=== PATIENT | male | born 1965 | race Hispanic/Latino ===

== ENCOUNTER 2019-09-11 05:31 | Inpatient (IN) | payer OTHER ==
[2019-09-11] MEDS ORDERED: Fentanyl 100 MCG/2 ML VIAL ONE (06:28)
[2019-09-11] MEDS ORDERED: Lidocaine 1% (PF) 30 ML VIAL ONE (07:10)
--- NOTE | 2019-09-11 07:35 | CT ---
CTA OF THE CHEST WITH CONTRAST: Date: 09/11/2019 HISTORY: COVID pneumonia with worsening shortness of breath. Previous tension pneumothorax for which a pigtail catheter was placed and eventually exchanged for a large chest tube. TECHNIQUE: Multiple contiguous axial images were obtained in a CTA of the chest with contrast per pulmonary embo lism protocol. 3D oblique MIP reformats and direct coronal reformats were performed. FINDINGS: The pulmonary arteries are well opacified without filling defects to suggest pulmonary embolism. The heart is normal in size without focal cardiac abnormality. No hilar or mediastinal lymphadenopathy se en. There is a left-sided chest tube. There is a moderate left pneumothorax with atelectasis of inferior and posterior aspect of both lower lobes. Multifocal peripheral opacities are seen in the lungs. This is most prominent in the right upper lobe. There is air in the mediastinum and left chest wall extending up to the left neck. Visualized subdiaphragmatic structures are unremarkable. Degenerative changes are seen in the spine. IMPRESSION: 1. No evidence of pulmonary thromboembolism. 2. Moderate left pneumothorax status post chest tube placement. 3. Multifocal infiltrates. POS: EAA
--- NOTE | 2019-09-11 07:50 | RAD ---
EXAM: Single view of the chest HISTORY: Pneumothorax and Covid pneumonia COMPARISON: 09/11/2019 at 6:07 AM FINDINGS: Single view of the chest shows a normal sized cardiomediastinal silhouette. A left-sided c hest tube is seen. There is a left-sided pneumothorax, unchanged. Multifocal peripheral opacities are seen in the lungs. Air is seen along the left chest wall. The bones are unremarkable. IMPRESSION: 1. Left-sided pneumothorax 2. Multifocal infiltrates
--- NOTE | 2019-09-11 07:51 | RAD ---
RADIOGRAPH CHEST 1 VIEW: DATE: 09/11/2019 TIME: 6:07 AM HISTORY: 54-year-old male with dyspnea and tension pneumothorax. COMPARISON: none FINDINGS: There is a left-sided chest tube entering the left lateral upper rib cage, distal tip overlying left upper intrathoracic cavity. There is an approximately 50% left pneumothorax, with severe left lower lobe atelectasis. There are multifocal patchy groundglass infiltrates throughout both lungs. No cardi omegaly. Moderately severe subcutaneous emphysema throughout left chest wall and dissecting into the left neck. Mild rightward deviation of trachea. No deviation of cardiac shadow from midline. IMPRESSION: 1. Moderately large left-sided pneumothorax 2. Left-sided chest tube and extensive left-sided subcutaneous emphysema. 3. Severe left lower lobe atelectasis. 4. Multifocal moderately severe bilateral infiltrates highly suggestive of COVID-19 pneumonia.
[2019-09-11] MEDS ORDERED: cefTRIAXone\\ROCEPHIN 2 GM VIAL ONE (07:59)
[2019-09-11] MEDS ORDERED: Azithromycin 500 MG VIAL ONE (08:00)
[2019-09-11] MEDS ORDERED: Iopamidol 370 76% 100 ML VIAL ONE (09:47)
[2019-09-11 10:09] VITALS: BMI 28.3
[2019-09-11] MEDS: Morphine 4 MG/ML VIAL SLOW IVP PRN ×2 (10:12→18:15)
[2019-09-11] MEDS ORDERED: HYDROcodone/Acetaminophen 5/325 mg Tablet PO PRN (10:54)
[2019-09-11] MEDS ORDERED: Bacteriostatic Water 30 ML VIAL FS PRN (11:06)
[2019-09-11] MEDS ORDERED: methylPREDNISolone Sod Succ 40 MG VIAL IVP SCH (12:00)
--- NOTE | 2019-09-11 12:34 | CON ---
DATE OF CONSULTATION: HISTORY OF PRESENT ILLNESS: Philip Falk is a 54-year-old [place] gentleman, who was transferred from [place], [place] to [facility] with a diagnosis of pneumothorax, positive coronavirus. He is on low-flow O2. Except for some pain, he denies any difficulty breathing. PAST MEDICAL HISTORY: Pertinent for hypothyroidism. PREVIOUS SURGERIES: None. SOCIAL HISTORY: Alcohol, none. Illegal drugs, none. REVIEW OF SYSTEMS: Otherwise, unremarkable. To note, he has received Decadron, Zithromax at previous hospital. PHYSICAL EXAMINATION: VITAL SIGNS: His sats are 95%, pulse 80, blood pressure 138/80, and respiratory rate 18. LUNGS: He has crepitus. No wheezing. CARDIAC: Normal S1, S2. No gallops. ABDOMEN: No masses. DIAGNOSTIC STUDIES: X-ray shows right-sided pneumothorax. There is left opacity. Renal function is normal. White count is unremarkable. CT chest did show bilateral infiltrates and pneumothorax. ASSESSMENT: 1. Spontaneous left pneumothorax in a nonsmoker. 2. History of hypothyroidism. PLAN: We have started convalescent plasma, Zithromax, Maxipime. Chest tube as per Surgery. Supportive care. We will follow. Consultation note, 70 minutes, 50% direct patient care. Job ID: [id number]
[2019-09-11] MEDS: Cefepime 1 GM in Sodium Chloride 0.9% 100 ML IVPB SCH (13:37)
[2019-09-11] MEDS: methylPREDNISolone Sod Succ 40 MG VIAL IVP SCH ×2 (13:40→18:17)
[2019-09-11] MEDS ORDERED: Levothyroxine Sodium 100 MCG TAB PO SCH (14:15)
--- NOTE | 2019-09-11 15:47 | CON ---
DATE OF CONSULTATION: HISTORY OF PRESENT ILLNESS: This is a gentleman who lives in [place], [place], transferred here with COVID and a chest tube on the left chest. The patient reportedly had a small-bore catheter initially placed for pneumothorax and then this was exchanged for a larger chest tube "[id number]-Turkmen" per the emergency room doctor. A CT scan done subsequent to this showed persistent pneumothorax, although I presumed the chest tube was not on suction at that time. Subsequent chest x-ray showed bilateral pulmonary infiltrates and not clearly a pneumothorax. Unfortunately, he had a waterless system which I have not developed a comfort level with and this was changed out to a water system, which showed no air leak. Tubes were all connected appropriately. PAST MEDICAL HISTORY: Hypothyroidism. PHYSICAL EXAMINATION: On examination, the patient has palpable subcutaneous tissue in the neck and the chest. He has significant crackling bilaterally, probably related to the subcu air. He is on low-flow oxygen. His exam at this time is otherwise not remarkable. PLAN: We will follow the chest tube, but presently with no air leak and I do not have any x-rays prior to chest tube placement or prior to and after catheter placement. Job ID: [id number]
--- NOTE | 2019-09-11 17:06 | HP ---
PRIMARY CARE PHYSICIAN: Geeta Goncalves. CHIEF COMPLAINT: Shortness of breath. HISTORY OF PRESENT ILLNESS: This is a 54-year-old male with a past medical history consistent only for hypothyroidism, who developed a cough starting about 1 to 2 months ago. He also will get multiple month of cough around this time of the year. About 2 weeks ago, the patient went and had a COVID test done that was negative. He continues to have cough and then some mild shortness of breath. He was seen again about 1 week ago in the emergency room, had a repeat COVID test done that was positive. He was given azithromycin and some other unknown medication, possibly a steroid. The patient about 2 days prior to admission started to get severely short of breath. He had shortness of breath at rest and with exertion and then today it got worse and so he went into the emergency room in [place], [place]. There, he was noted to have a tension pneumothorax. He had first a pigtail catheter placed, it did not drain the pneumothorax and so it was removed and a left-sided chest tube was placed with improvement in the pneumothorax and improvement in shortness of breath. He was saturating in the low 80s on room air prior to the chest tube placement. On arrival to our emergency room, he was on 4 L, he was saturating well. Just complaining of pain from the chest tube site. In the emergency room, he had a repeat chest x-ray that showed some persistence of the pneumothorax, though no tension noted. He also had then a CT scan done, which again confirmed the pneumothorax. Dr. Vlaenzuela was consulted by the emergency room and he did evaluate the patient when he got to the [facility] and adjusted the chest tube. The patient's only other complaint is that he reports over the last couple of months while he has been coughing he has also had some weight loss of about 20 to 30 pounds, this was unintentional. REVIEW OF SYSTEMS: CONSTITUTIONAL: See HPI. No fevers or chills. EYES: No double vision or blurred vision. ENT: No congestion, drainage, or sore throat. CARDIOVASCULAR: No cardiac chest pain. No palpitations or racing heart. PULMONARY: See HPI. He does report that over the last couple of days, he also had some hemoptysis with his cough and now he has pain around the chest tube site, which is not improved with morphine. Nurses trying some [place] currently. GASTROINTESTINAL: No abdominal pain. No nausea or vomiting. No diarrhea, just some loose bowel movements in the last few days. No constipation. GENITOURINARY: No dysuria or hematuria. MUSCULOSKELETAL: No muscle aches or joint pain. SKIN: No rashes or other lesions he has noted. NEUROLOGIC: No numbness, tingling, or focal weakness. PAST MEDICAL HISTORY: Hypothyroidism. PAST SURGICAL HISTORY: None. SOCIAL HISTORY: The patient drinks about 2 beers each weekend until 2 months ago, has not drank since then. No tobacco use. No illicit drug use. He is and lives with his , who would be his medical decision maker, her name is Dotty Falk. He is a full code. FAMILY HISTORY: Just seasonal allergies and cough yearly from them. ALLERGIES: NO KNOWN DRUG ALLERGIES. CURRENT MEDICATIONS: Levothyroxine 100 mcg daily. PHYSICAL EXAMINATION: VITAL SIGNS: Blood pressure 103/77, pulse 89, respirations 25, and O2 saturation high 90s on 4 L nasal cannula. GENERAL: This is a well-developed, well-nourished male, in no acute distress. HEENT: Pupils are equal, round, and reactive to light. Oropharynx clear without lesions, erythema, or exudate. NECK: Supple. No lymphadenopathy. No thyroid nodules or enlargement. No deviation of the trachea. HEART: Regular rate and rhythm. No murmurs, rubs, or gallops. LUNGS: The patient has a few crackles on the left side, otherwise good air movement throughout the lung nascimento. He has no increased work of breathing currently. He does have a chest tube in place and has some subcutaneous air on palpation of his left shoulder and neck. ABDOMEN: Soft and nontender to palpation. Normoactive bowel sounds. No hepatosplenomegaly or masses. EXTREMITIES: No clubbing, cyanosis, or edema. SKIN: No rashes or lesions noted. NEUROLOGIC: The patient has intact strength and sensation in all extremities. No facial droop. PSYCHIATRIC: Alert and oriented x3. Normal mood and affect. LABORATORY DATA: Creatinine and white count were normal in the outside emergency room, a.m. labs ordered. IMAGING STUDIES: Chest x-ray done in the emergency room shows a left-sided pneumothorax and multifocal infiltrates. CTA of the chest and thorax without contrast in the emergency room shows no evidence for pulmonary thromboembolism. Does have a moderate left pneumothorax status post chest tube placement and multifocal infiltrates consistent with his diagnosis of COVID. ASSESSMENT: 1. Tension pneumothorax, improved after chest tube placement. Dr. Valenzuela consulted for management of the chest tube. 2. COVID pneumonia with possibly the source of his pneumothorax. The patient is being continued on azithromycin. He did get some dexamethasone in the emergency room and Dr. Baron has been consulted and he has put him on Solu-Medrol in the IMCU. We will continue supplementing oxygen as needed. 3. Acute respiratory failure with hypoxia, stable on nasal cannula oxygen. 4. Hypothyroidism. We will resume the patient's home levothyroxine. 5. Gastrointestinal prophylaxis. The patient on Pepcid twice a day. 6. Deep venous thrombosis prophylaxis. We will put the patient on Lovenox. CODE STATUS: The patient is a full code. Should he be incapacitated, his would be his medical decision maker, her name is Dotty Falk. Job ID: [id number]
[2019-09-11] MEDS: Albuterol 200 PUFF (6.7GM INHALER) INH SCH (18:12)
[2019-09-11] MEDS: Enoxaparin Sodium 40 MG/0.4 ML SYRINGE SC SCH (18:13)
[2019-09-11] MEDS: Famotidine/PF 20 mg/2ml Vial SLOW IVP SCH (18:13)
[2019-09-11] MEDS ORDERED: Enoxaparin Sodium 40 MG/0.4 ML SYRINGE SC SCH (21:00)
[2019-09-12] MEDS: Cefepime 1 GM in Sodium Chloride 0.9% 100 ML IVPB SCH ×2 (00:34→11:37)
[2019-09-12] MEDS: methylPREDNISolone Sod Succ 40 MG VIAL IVP SCH ×4 (00:36→17:06)
[2019-09-12] MEDS: HYDROcodone/Acetaminophen 10/325 mg Tablet PO PRN ×3 (03:26→21:26)
[2019-09-12] MEDS: Albuterol 200 PUFF (6.7GM INHALER) INH SCH ×4 (03:27→20:43)
[2019-09-12 03:49] LABS: #Monocytes 0.2 thou/uL (0.11-0.59); #Neutrophils 11.5 thou/uL (1.40-6.50); %Basophils 0.1 % (0.0-1.0); %Eosinophils 0.1 % (0.0-10.0); %Monocytes 1.5 % (0.0-10.0); %Neutrophils 90.4 % (42.0-75.0); Hemoglobin 14.3 g/dL (14.0-18.0); Mean Corpuscular HGB CONC 33.6 g/dL (32.0-36.0); Mean Corpuscular Hemoglobin 31.3 pg (27.0-31.0); Mean Corpuscular Volume 93.2 fL (78.0-98.0); Mean Platelet Volume 8.5 fL (7.4-10.4); Platelet Count 198 thou/uL (130-400); RBC Distribution Width 13.1 % (11.5-14.5); Red Blood Cell (RBC) Count 4.58 mill/uL (4.70-6.10); White Blood Cell (WBC) Count 12.7 thou/uL (4.8-10.8)
[2019-09-12 04:07] LABS: Anion Gap 11 mmol/L (10-20); BUN (Urea Nitrogen) 16 mg/dL (8.4-25.7); Calc. Creatinine Clearance 126 mL/min (70-130); Calcium 9.6 mg/dL (7.8-10.44); Carbon Dioxide 26 mmol/L (22-29); Chloride 101 mmol/L (98-107); Estimated GFR-MDRD Greater than 90; Glucose 140 mg/dL (70-105); Potassium 4.5 mmol/L (3.5-5.1); Sodium 133 mmol/L (136-145)
[2019-09-12] MEDS: Famotidine/PF 20 mg/2ml Vial SLOW IVP SCH ×2 (06:18→17:05)
[2019-09-12] MEDS: Levothyroxine Sodium 100 MCG TAB PO SCH (06:18)
[2019-09-12] MEDS: Enoxaparin Sodium 40 MG/0.4 ML SYRINGE SC SCH ×2 (06:18→17:05)
[2019-09-12] MEDS: Azithromycin 500 MG in Sodium Chloride 0.9% 250 ML 250 ML IVPB SCH (06:19)
--- NOTE | 2019-09-12 08:47 | RAD ---
CHEST 1 VIEW PORTABLE: HISTORY: Moderate-sized residual left-sided pneumothorax with some atelectasis of the left lower lobe. Extens johnathon left-sided subcutaneous emphysema. The left chest tube appears to have been pulled back very sli ghtly when compared to the prior study with the side-hole now approximating the left lateral chest wa ll. Patchy interstitial and nodular parenchymal changes in the right lung. IMPRESSION: Persistent left-sided pneumothorax and subcutaneous emphysema with some left lower lobe atelectasis a nd stable patchy nodular and interstitial opacity changes in the right lung. Continue short-term fol lowup. POS: RRE
--- NOTE | 2019-09-12 08:59 | PDOC.HOSPP ---
- Subjective Encounter Date: 09/12/19 Encounter Time: 12:40 Subjective: Patient with some persistent pain from the chest tube. No other complaints. SOB controlled with O2. - Objective Vital Signs & Weight: Vital Signs (12 hours) Pulse Ox 09/12/19 08:00 100 09/12/19 04:00 92 L 09/12/19 01:10 91 L Weight Weight 186 lb Most Recent Monitor Data Heart Rate from ECG 104 NIBP 109/79 NIBP BP-Mean 89 Respiration from ECG 27 SpO2 94 I&O: 09/11/19 09/12/19 09/13/19 06:59 06:59 06:59 Intake Total 2180 Output Total 1950 Balance 230 Result Diagrams: 09/12/19 03:13 09/12/19 03:13 Radiology Reviewed by me: Yes (persistent PTX with chest tube in place) Hospitalist ROS - Review of Systems Constitutional: denies: fever, chills Respiratory: reports: cough, pleuritic pain. denies: shortness of breath Cardiovascular: denies: palpitations, orthopnea Gastrointestinal: denies: nausea, vomiting, abdominal pain - Medication Medications: Active Medications Generic Name Dose Route Start Last Admin Trade Name Freq PRN Reason Stop Dose Admin Hydrocodone Bitart/Acetaminophen 2 tab 09/11/19 18:13 09/12/19 03:26 [place] 10/325 PO 2 tab Q4H PRN Administration Moderate to Severe Pain (6-10) Albuterol Sulfate 2 puff 09/11/19 19:00 09/12/19 08:16 Proventil Hfa INH 2 puff [id number] MANUEL Administration Enoxaparin Sodium 40 mg 09/11/19 18:00 09/12/19 06:18 Lovenox SC 40 mg 0600,1800 MANUEL Administration Famotidine 20 mg 09/11/19 18:00 09/12/19 06:18 Pepcid SLOW IVP 20 mg 0600,1800 MANUEL Administration Ascorbic Acid 1,500 mg/ Sodium 53 mls @ 100 mls/hr 09/11/19 12:00 09/12/19 06 :18 Chloride IVPB 09/15/19 06:32 53 mls Q6HR MANUEL Administration Azithromycin 500 mg/ Sodium 250 mls @ 250 mls/hr 09/12/19 06:00 09/12/19 06: 19 Chloride IVPB 250 mls 0600 MANUEL Administration Cefepime HCl 1 gm/ Sodium 100 mls @ 200 mls/hr 09/11/19 12:00 09/12/19 00:34 Chloride IVPB 100 mls 0000,1200 MANUEL Administration Thiamine HCl 200 mg/ Sodium 52 mls @ 100 mls/hr 09/11/19 12:00 09/12/19 00:34 Chloride IVPB 09/15/19 00:32 52 mls 0000,1200 MANUEL Administration Levothyroxine Sodium 100 mcg 09/12/19 06:00 09/12/19 06:18 Synthroid PO 100 mcg 0600 MANUEL Administration Methylprednisolone Sodium Succinate 40 mg 09/11/19 12:00 09/12/19 06:19 Solu-Medrol IVP 40 mg Q6HR MANUEL Administration Morphine Sulfate 4 mg 09/11/19 09:58 09/11/19 18:15 Morphine SLOW IVP 4 mg Q3H PRN Administration Pain Sodium Chloride 10 ml 09/11/19 21:00 09/11/19 20:47 Flush - Normal Saline IVF 10 ml Q12HR MANUEL Administration - Exam General Appearance: NAD, awake alert ENT: moist mucosa Heart: RRR, no murmur, no gallops, no rubs Respiratory - other findings: left chest tube in place, crackles on the left side Gastrointestinal: soft, non-tender, non-distended, normal bowel sounds Musculoskeletal: normal tone, normal strength Psychiatric: normal affect, normal behavior, A&O x 3 Hosp A/P (1) Pneumothorax on left Code(s): J93.9 - PNEUMOTHORAX, UNSPECIFIED Status: Acute (2) Pneumonia due to COVID-19 virus Code(s): U07.1 - COVID-19; J12.89 - OTHER VIRAL PNEUMONIA Status: Acute (3) Acute respiratory failure with hypoxia Code(s): J96.01 - ACUTE RESPIRATORY FAILURE WITH HYPOXIA Status: Acute (4) Hypothyroidism Code(s): E03.9 - HYPOTHYROIDISM, UNSPECIFIED Status: Chronic - Plan CT surgery and pulmonology following On azithromycin and steroids
--- NOTE | 2019-09-12 09:03 | PRG ---
DATE OF SERVICE: 09/12/2019 SUBJECTIVE: This morning, he is awake, alert, and responsive. OBJECTIVE: VITAL SIGNS: His saturations are 100% on high flow, blood pressure 109/79, respiratory rate 18, pulse 80. CHEST: Decreased breath sounds. No wheezing. CARDIAC: Normal S1, S2. No gallops. ABDOMEN: No masses. LABORATORY DATA: White count 12,000. Lytes are normal. X-ray shows small pneumothorax, possibly underlying bullous disease. IMPRESSION: 1. Chronic obstructive pulmonary disease. 2. Coronavirus positive pneumonia. PLAN: Continue Zithromax, Maxipime, steroids, convalescent plasma. We will follow. Job ID: [id number]
[2019-09-12] MEDS: Guaifenesin DM 100-10/5 ML UDCUP PO PRN ×2 (17:46→22:18)
[2019-09-13] MEDS: methylPREDNISolone Sod Succ 40 MG VIAL IVP SCH ×5 (00:02→23:14)
[2019-09-13] MEDS: Morphine 4 MG/ML VIAL SLOW IVP PRN ×5 (00:03→23:14)
[2019-09-13] MEDS: Cefepime 1 GM in Sodium Chloride 0.9% 100 ML IVPB SCH ×3 (00:03→23:13)
[2019-09-13] MEDS: Albuterol 200 PUFF (6.7GM INHALER) INH SCH ×4 (00:27→20:06)
[2019-09-13 04:01] LABS: Band 6 % (5-11); Hemoglobin 13.6 g/dL (14.0-18.0); Lymphocytes 6 % (21-51); MDiff Complete? YES; Mean Corpuscular HGB CONC 33.3 g/dL (32.0-36.0); Mean Corpuscular Hemoglobin 31.3 pg (27.0-31.0); Mean Corpuscular Volume 93.9 fL (78.0-98.0); Mean Platelet Volume 8.6 fL (7.4-10.4); Monocytes 1 % (0-10); Neutrophil 87 % (42-75); Platelet Count 209 thou/uL (130-400); Platelet Morphology Comment Appears Adequate; RBC Distribution Width 13.1 % (11.5-14.5); Red Blood Cell (RBC) Count 4.34 mill/uL (4.70-6.10); White Blood Cell (WBC) Count 24.3 thou/uL (4.8-10.8)
[2019-09-13 04:02] LABS: Anion Gap 12 mmol/L (10-20); BUN (Urea Nitrogen) 21 mg/dL (8.4-25.7); Calc. Creatinine Clearance 128 mL/min (70-130); Calcium 9.5 mg/dL (7.8-10.44); Carbon Dioxide 26 mmol/L (22-29); Chloride 100 mmol/L (98-107); Estimated GFR-MDRD Greater than 90; Glucose 133 mg/dL (70-105); Potassium 4.8 mmol/L (3.5-5.1); Sodium 133 mmol/L (136-145)
[2019-09-13] MEDS: Enoxaparin Sodium 40 MG/0.4 ML SYRINGE SC SCH ×2 (05:12→17:38)
[2019-09-13] MEDS: Azithromycin 500 MG in Sodium Chloride 0.9% 250 ML 250 ML IVPB SCH (05:12)
[2019-09-13] MEDS: Famotidine/PF 20 mg/2ml Vial SLOW IVP SCH ×2 (05:13→17:38)
[2019-09-13] MEDS: Levothyroxine Sodium 100 MCG TAB PO SCH (05:13)
[2019-09-13] MEDS ORDERED: Lidocaine 1% w/Epinephrine 1:100K 20 ML VIAL ONE (06:49)
--- NOTE | 2019-09-13 07:35 | RAD ---
Chest one view HISTORY: Pneumothorax. Chest tube placement. COMPARISON: 09/13/2019. FINDINGS: Cardiac silhouette is magnified by projection. Slight rightward deviation of the mediastinu m with near complete collapse of the left lung. Left thoracostomy tube is now positioned into the apex, with the proximal sidehole overlying the late ral aspect of the left hemithorax. Left chest wall subcutaneous gas is similar in appearance to the previous study. Areas of linear and parenchymal opacity within the right right lung similar in appearance. IMPRESSION : Interval placement of left thoracostomy tube, in good radiographic position.. Rightward shift of the mediastinum and other findings are otherwise stable.
[2019-09-13] MEDS: HYDROcodone/Acetaminophen 10/325 mg Tablet PO PRN ×3 (07:46→20:07)
--- NOTE | 2019-09-13 07:54 | RAD ---
EXAM: Single view of the chest HISTORY: Ventilated patient with respiratory failure COMPARISON: 09/12/2019 FINDINGS: Single view of the chest shows a normal sized cardiomediastinal silhouette. There is a lef t-sided chest tube which has been pulled out of the thorax with its sidehole in the thoracic wall. There is a small to moderate left pneumothorax. Air is seen in the left chest wall. Peripheral opaci ties are seen in the right upper lobe. The bones are unremarkable. IMPRESSION: Retraction of left chest tube into the left chest wall with left-sided pneumothorax
--- NOTE | 2019-09-13 07:56 | OP ---
DATE OF PROCEDURE: 09/13/2019 The patient's chest x-ray this morning showed the chest tube was no longer in the chest and appeared he had a pneumothorax. Due to his underlying COVID and dyspnea on oxygen, emergently the area was prepped and draped. Lidocaine infiltrated and a 28 tube inserted. There did not appear to be any adhesions when a finger was inserted in the intercostal space into the chest. There was no air leak post connection to the chest tube. Pleur-evac and tube were secured to the skin with a suture and tape. X-ray is pending. Job ID: [id number]
--- NOTE | 2019-09-13 09:27 | PDOC.HOSPP ---
- Subjective Encounter Date: 09/13/19 Encounter Time: 14:10 Subjective: Patient with chest tube out of place on X-ray this AM, replaced by Dr. Valenzuela. Some pain at the chest tube site controlled with IV and oral pain meds. No SOB. Still occ cough with scant bloody sputum. - Objective Vital Signs & Weight: Vital Signs (12 hours) Temp Pulse Ox 09/13/19 08:00 94 L 09/13/19 04:00 99.0 F 09/13/19 00:00 98.5 F Weight Admit Weight 186 lb Weight 186 lb Most Recent Monitor Data Heart Rate from ECG 98 NIBP 116/77 NIBP BP-Mean 90 Respiration from ECG 19 SpO2 98 I&O: 09/12/19 09/13/19 09/14/19 06:59 06:59 06:59 Intake Total 2180 1070 Output Total 1950 1650 Balance 230 -580 Result Diagrams: 09/13/19 03:17 09/13/19 03:17 Radiology Reviewed by me: Yes (CT out of place, repeat film with new tube in place) Hospitalist ROS - Review of Systems Constitutional: denies: fever, chills Respiratory: reports: cough, hemoptysis, pleuritic pain. denies: shortness of breath Cardiovascular: denies: palpitations, edema Gastrointestinal: denies: nausea, vomiting, abdominal pain - Medication Medications: Active Medications Generic Name Dose Route Start Last Admin Trade Name Freq PRN Reason Stop Dose Admin Hydrocodone Bitart/Acetaminophen 2 tab 09/11/19 18:13 09/13/19 07:46 [place] 10/325 PO 2 tab Q4H PRN Administration Moderate to Severe Pain (6-10) Albuterol Sulfate 2 puff 09/11/19 19:00 09/13/19 06:04 Proventil Hfa INH 2 puff [id number] MANUEL Administration Enoxaparin Sodium 40 mg 09/11/19 18:00 09/13/19 05:12 Lovenox SC 40 mg 0600,1800 MANUEL Administration Famotidine 20 mg 09/11/19 18:00 09/13/19 05:13 Pepcid SLOW IVP 20 mg 0600,1800 MANUEL Administration Guaifenesin/Dextromethorphan 15 ml 09/12/19 15:12 09/12/19 22:18 Robitussin Dm PO 15 ml Q4H PRN Administration Cough Ascorbic Acid 1,500 mg/ Sodium 53 mls @ 100 mls/hr 09/11/19 12:00 09/13/19 05 :12 Chloride IVPB 09/15/19 06:32 53 mls Q6HR MANUEL Administration Azithromycin 500 mg/ Sodium 250 mls @ 250 mls/hr 09/12/19 06:00 09/13/19 05: 12 Chloride IVPB 250 mls 0600 MANUEL Administration Cefepime HCl 1 gm/ Sodium 100 mls @ 200 mls/hr 09/11/19 12:00 09/13/19 00:03 Chloride IVPB 100 mls 0000,1200 MANUEL Administration Thiamine HCl 200 mg/ Sodium 52 mls @ 100 mls/hr 09/11/19 12:00 09/13/19 00:02 Chloride IVPB 09/15/19 00:32 52 mls 0000,1200 MANUEL Administration Levothyroxine Sodium 100 mcg 09/12/19 06:00 09/13/19 05:13 Synthroid PO 100 mcg 0600 MANUEL Administration Methylprednisolone Sodium Succinate 40 mg 09/11/19 12:00 09/13/19 05:13 Solu-Medrol IVP 40 mg Q6HR MANUEL Administration Morphine Sulfate 4 mg 09/11/19 09:58 09/13/19 07:45 Morphine SLOW IVP 4 mg Q3H PRN Administration Pain Sodium Chloride 10 ml 09/11/19 21:00 09/13/19 07:46 Flush - Normal Saline IVF 10 ml Q12HR MANUEL Administration - Exam General Appearance: NAD, awake alert ENT: moist mucosa Heart: RRR, no murmur, no gallops, no rubs Respiratory - other findings: improved air movement on left side, no increased WOB, on 2L NC O2 Gastrointestinal: soft, non-tender, non-distended, normal bowel sounds Psychiatric: normal affect, normal behavior, A&O x 3 Hosp A/P (1) Pneumothorax on left Code(s): J93.9 - PNEUMOTHORAX, UNSPECIFIED Status: Acute (2) Pneumonia due to COVID-19 virus Code(s): U07.1 - COVID-19; J12.89 - OTHER VIRAL PNEUMONIA Status: Acute (3) Acute respiratory failure with hypoxia Code(s): J96.01 - ACUTE RESPIRATORY FAILURE WITH HYPOXIA Status: Acute (4) Hypothyroidism Code(s): E03.9 - HYPOTHYROIDISM, UNSPECIFIED Status: Chronic - Plan CT surgery and pulmonology following Chest tube came out into chest wall this AM, replaced by Dr. Valenzuela On azithromycin and steroids On 2L NC
--- NOTE | 2019-09-13 10:25 | PRG ---
DATE OF SERVICE: SUBJECTIVE: A 54-year-old gentleman with chest tube inserted. His x-ray looks much improved. His infiltrates bilaterally look somewhat better. He received one bag of convalescent plasma and his C-reactive protein is down to 2.64. He IV antibiotics and steroids. PHYSICAL EXAMINATION: CHEST: Decreased breath sounds. No wheezing. CARDIAC: Normal S1 and S2. No gallops. ABDOMEN: No masses. LABORATORY DATA: Pertinent for white count 23,000. Sodium 133. ASSESSMENT: Respiratory failure, andre positive pneumonia, and spontaneous pneumothorax. PLAN: Continue present treatment. We will probably switch him over to oral antibiotics in the next several days. We will follow. Job ID: [id number]
[2019-09-13] MEDS ORDERED: Senokot S 8.6-50 MG TAB PO PRN (18:48)
[2019-09-13] MEDS: Guaifenesin DM 100-10/5 ML UDCUP PO PRN (20:31)
[2019-09-14] MEDS: Albuterol 200 PUFF (6.7GM INHALER) INH SCH ×4 (01:30→17:50)
[2019-09-14 04:09] LABS: #Lymphocytes 1.1 thou/uL (1.20-3.40); #Monocytes 0.4 thou/uL (0.11-0.59); #Neutrophils 15.9 thou/uL (1.40-6.50); %Basophils 0.1 % (0.0-1.0); %Eosinophils 0.2 % (0.0-10.0); %Lymphocytes 6.3 % (21.0-51.0); %Monocytes 2.4 % (0.0-10.0); %Neutrophils 91.2 % (42.0-75.0); Hemoglobin 12.5 g/dL (14.0-18.0); Mean Corpuscular HGB CONC 31.9 g/dL (32.0-36.0); Mean Corpuscular Hemoglobin 29.9 pg (27.0-31.0); Mean Corpuscular Volume 93.8 fL (78.0-98.0); Mean Platelet Volume 8.7 fL (7.4-10.4); Platelet Count 180 thou/uL (130-400); RBC Distribution Width 13.1 % (11.5-14.5); Red Blood Cell (RBC) Count 4.19 mill/uL (4.70-6.10); White Blood Cell (WBC) Count 17.5 thou/uL (4.8-10.8)
[2019-09-14 04:27] LABS: Anion Gap 13 mmol/L (10-20); BUN (Urea Nitrogen) 19 mg/dL (8.4-25.7); Calc. Creatinine Clearance 143 mL/min (70-130); Calcium 9.1 mg/dL (7.8-10.44); Carbon Dioxide 25 mmol/L (22-29); Chloride 100 mmol/L (98-107); Estimated GFR-MDRD Greater than 90; Glucose 129 mg/dL (70-105); Potassium 4.5 mmol/L (3.5-5.1); Sodium 133 mmol/L (136-145)
[2019-09-14] MEDS: Morphine 4 MG/ML VIAL SLOW IVP PRN (04:33)
[2019-09-14] MEDS: methylPREDNISolone Sod Succ 40 MG VIAL IVP SCH (05:46)
[2019-09-14] MEDS: Famotidine/PF 20 mg/2ml Vial SLOW IVP SCH ×2 (05:46→17:51)
[2019-09-14] MEDS: Levothyroxine Sodium 100 MCG TAB PO SCH (05:46)
[2019-09-14] MEDS: Enoxaparin Sodium 40 MG/0.4 ML SYRINGE SC SCH ×2 (05:46→17:51)
[2019-09-14] MEDS: Azithromycin 500 MG in Sodium Chloride 0.9% 250 ML 250 ML IVPB SCH (05:47)
[2019-09-14] MEDS: Guaifenesin DM 100-10/5 ML UDCUP PO PRN ×3 (06:34→21:42)
--- NOTE | 2019-09-14 07:56 | RAD ---
EXAM: Single view of the chest HISTORY: Ventilated patient with respiratory failure COMPARISON: 09/13/2019 FINDINGS: Single view of the chest shows a normal sized cardiomediastinal silhouette. The left chest tube is again seen in good position without evidence of pneumothorax. Peripheral areas of airspace opacity are seen in the right lower lobe. Air is seen in the left chest wall. The bones are unremarkable. IMPRESSION: Stable exam
--- NOTE | 2019-09-14 08:19 | PRG ---
DATE OF SERVICE: SUBJECTIVE: He is a 54-year-old gentleman. This morning, he is awake, alert, and responsive. OBJECTIVE: VITAL SIGNS: His sats are 96% on 2 L, blood pressure 120/84, pulse is 85, respiratory rate 18. He is afebrile. GENERAL: Denies any pain or discomfort. CHEST: No wheezing or crackles. CARDIAC: Normal S1, S2. No gallops. ABDOMEN: No masses. LABORATORY DATA: White count [id number]. Lytes are normal. IMPRESSION: Coronavirus pneumonia; baseline underlying chronic obstructive pulmonary disease; pneumothorax, spontaneous. PLAN: 1. Switch over to oral medication. Continue CT drainage. 2. We will follow. Job ID: [id number]
--- NOTE | 2019-09-14 08:37 | PDOC.HOSPP ---
- Subjective Encounter Date: 09/14/19 Encounter Time: 11:00 Subjective: Patient reports decreased SOB. Pain much better. Overall improving. No BM yet with laxatives. - Objective Vital Signs & Weight: Vital Signs (12 hours) Temp Pulse Ox 09/14/19 08:00 97 09/14/19 03:48 97.9 F 09/14/19 00:00 98.0 F Weight Admit Weight 186 lb Weight 186 lb Most Recent Monitor Data Heart Rate from ECG 69 NIBP 114/77 NIBP BP-Mean 89 Respiration from ECG 23 SpO2 100 I&O: 09/13/19 09/14/19 09/15/19 06:59 06:59 06:59 Intake Total 1070 1890 Output Total 1650 2510 Balance -580 -620 Result Diagrams: 09/14/19 03:20 09/14/19 03:20 Hospitalist ROS - Review of Systems Constitutional: denies: fever, chills Respiratory: reports: pleuritic pain. denies: cough, shortness of breath Cardiovascular: denies: chest pain, palpitations Gastrointestinal: reports: constipation. denies: nausea, vomiting, abdominal pain - Medication Medications: Active Medications Generic Name Dose Route Start Last Admin Trade Name Freq PRN Reason Stop Dose Admin Hydrocodone Bitart/Acetaminophen 1 tab 09/11/19 18:13 09/13/19 20:07 [place] 10/325 PO 1 tab Q4H PRN Administration Mild-Moderate Pain (1-5) Hydrocodone Bitart/Acetaminophen 2 tab 09/11/19 18:13 09/13/19 12:29 [place] 10/325 PO 2 tab Q4H PRN Administration Moderate to Severe Pain (6-10) Albuterol Sulfate 2 puff 09/11/19 19:00 09/14/19 01:30 Proventil Hfa INH 2 puff [id number] MANUEL Administration Enoxaparin Sodium 40 mg 09/11/19 18:00 09/14/19 05:46 Lovenox SC 40 mg 0600,1800 MANUEL Administration Famotidine 20 mg 09/11/19 18:00 09/14/19 05:46 Pepcid SLOW IVP 20 mg 0600,1800 MANUEL Administration Guaifenesin/Dextromethorphan 15 ml 09/12/19 15:12 09/14/19 06:34 Robitussin Dm PO 15 ml Q4H PRN Administration Cough Ascorbic Acid 1,500 mg/ Sodium 53 mls @ 100 mls/hr 09/11/19 12:00 09/14/19 05 :46 Chloride IVPB 09/15/19 06:32 53 mls Q6HR MANUEL Administration Thiamine HCl 200 mg/ Sodium 52 mls @ 100 mls/hr 09/11/19 12:00 09/13/19 23:14 Chloride IVPB 09/15/19 00:32 52 mls 0000,1200 MANUEL Administration Levothyroxine Sodium 100 mcg 09/12/19 06:00 09/14/19 05:46 Synthroid PO 100 mcg 0600 MANUEL Administration Morphine Sulfate 4 mg 09/11/19 09:58 09/14/19 04:33 Morphine SLOW IVP 4 mg Q3H PRN Administration Pain Senna/Docusate Sodium 2 tab 09/13/19 18:48 09/13/19 20:07 Senokot S PO 2 tab BID PRN Administration Constipation Sodium Chloride 10 ml 09/11/19 21:00 09/13/19 20:06 Flush - Normal Saline IVF 10 ml Q12HR MANUEL Administration - Exam General Appearance: NAD, awake alert ENT: moist mucosa Heart: RRR, no murmur, no gallops, no rubs Respiratory - other findings: improved breath sounds on left, no inc WOB, chest tube in place Gastrointestinal: soft, non-tender, non-distended, normal bowel sounds Extremities: no edema Psychiatric: normal affect, normal behavior, A&O x 3 Hosp A/P (1) Pneumothorax on left Code(s): J93.9 - PNEUMOTHORAX, UNSPECIFIED Status: Acute (2) Pneumonia due to COVID-19 virus Code(s): U07.1 - COVID-19; J12.89 - OTHER VIRAL PNEUMONIA Status: Acute (3) Acute respiratory failure with hypoxia Code(s): J96.01 - ACUTE RESPIRATORY FAILURE WITH HYPOXIA Status: Acute (4) Hypothyroidism Code(s): E03.9 - HYPOTHYROIDISM, UNSPECIFIED Status: Chronic - Plan CT surgery and pulmonology following Pneumothorax resolving with chest tube replacement Switched to oral abx and steroids On 2L NC
[2019-09-14] MEDS: Polyethylene Glycol 3350 17 GM Packet PO SCH (09:54)
[2019-09-14] MEDS: HYDROcodone/Acetaminophen 10/325 mg Tablet PO PRN ×2 (09:54→20:13)
[2019-09-14] MEDS: predniSONE 20 MG TAB PO SCH (09:54)
[2019-09-14] MEDS: Doxycycline 100 MG CAP PO SCH ×2 (09:54→20:13)
[2019-09-15] MEDS: Albuterol 200 PUFF (6.7GM INHALER) INH SCH ×4 (00:34→17:09)
[2019-09-15 03:54] LABS: #Eosinphils 0.1 thou/uL (0.0-0.7); #Lymphocytes 2.7 thou/uL (1.20-3.40); #Monocytes 1.1 thou/uL (0.11-0.59); #Neutrophils 9.3 thou/uL (1.40-6.50); %Basophils 0.1 % (0.0-1.0); %Eosinophils 0.7 % (0.0-10.0); %Lymphocytes 20.5 % (21.0-51.0); %Monocytes 8.4 % (0.0-10.0); %Neutrophils 70.2 % (42.0-75.0); Hemoglobin 12.7 g/dL (14.0-18.0); Mean Corpuscular HGB CONC 31.9 g/dL (32.0-36.0); Mean Corpuscular Hemoglobin 30.2 pg (27.0-31.0); Mean Corpuscular Volume 94.9 fL (78.0-98.0); Mean Platelet Volume 8.8 fL (7.4-10.4); Platelet Count 184 thou/uL (130-400); RBC Distribution Width 13.2 % (11.5-14.5); Red Blood Cell (RBC) Count 4.21 mill/uL (4.70-6.10); White Blood Cell (WBC) Count 13.3 thou/uL (4.8-10.8)
[2019-09-15 04:12] LABS: Anion Gap 7 mmol/L (10-20); BUN (Urea Nitrogen) 19 mg/dL (8.4-25.7); Calc. Creatinine Clearance 126 mL/min (70-130); Calcium 8.9 mg/dL (7.8-10.44); Carbon Dioxide 29 mmol/L (22-29); Chloride 101 mmol/L (98-107); Estimated GFR-MDRD Greater than 90; Glucose 90 mg/dL (70-105); Potassium 4.2 mmol/L (3.5-5.1); Sodium 133 mmol/L (136-145)
[2019-09-15] MEDS: Famotidine/PF 20 mg/2ml Vial SLOW IVP SCH (05:47)
[2019-09-15] MEDS: Enoxaparin Sodium 40 MG/0.4 ML SYRINGE SC SCH ×2 (05:47→17:09)
[2019-09-15] MEDS: Levothyroxine Sodium 100 MCG TAB PO SCH (05:47)
[2019-09-15] MEDS: HYDROcodone/Acetaminophen 10/325 mg Tablet PO PRN (05:57)
[2019-09-15] MEDS: Guaifenesin DM 100-10/5 ML UDCUP PO PRN ×3 (05:59→20:38)
[2019-09-15] MEDS: Polyethylene Glycol 3350 17 GM Packet PO SCH (08:25)
[2019-09-15] MEDS: predniSONE 20 MG TAB PO SCH (08:34)
[2019-09-15] MEDS: Doxycycline 100 MG CAP PO SCH ×2 (08:34→20:37)
--- NOTE | 2019-09-15 08:51 | PDOC.HOSPP ---
- Subjective Encounter Date: 09/15/19 Encounter Time: 11:30 Subjective: Patient feeling better. No chest pain. No SOB. Some cough. No fever. Had a bowel movement yesterday. - Objective Vital Signs & Weight: Vital Signs (12 hours) Temp 09/15/19 04:00 98.3 F 09/15/19 00:00 97.9 F Weight Admit Weight 186 lb Weight 186 lb Most Recent Monitor Data Heart Rate from ECG 60 NIBP 114/85 NIBP BP-Mean 94 Respiration from ECG 19 SpO2 94 I&O: 09/14/19 09/15/19 09/16/19 06:59 06:59 06:59 Intake Total 1890 1630 Output Total 2510 2490 Balance -620 -860 Result Diagrams: 09/15/19 03:21 09/15/19 03:21 Hospitalist ROS - Review of Systems Constitutional: denies: fever, chills Respiratory: denies: cough, shortness of breath, pleuritic pain Cardiovascular: denies: chest pain, palpitations Gastrointestinal: denies: nausea, vomiting, abdominal pain, diarrhea, constipation - Medication Medications: Active Medications Generic Name Dose Route Start Last Admin Trade Name Freq PRN Reason Stop Dose Admin Hydrocodone Bitart/Acetaminophen 1 tab 09/11/19 18:13 09/15/19 05:57 [place] 10/325 PO 1 tab Q4H PRN Administration Mild-Moderate Pain (1-5) Hydrocodone Bitart/Acetaminophen 2 tab 09/11/19 18:13 09/14/19 09:54 [place] 10/325 PO 2 tab Q4H PRN Administration Moderate to Severe Pain (6-10) Albuterol Sulfate 2 puff 09/11/19 19:00 09/15/19 05:47 Proventil Hfa INH 2 puff [id number] MANUEL Administration Doxycycline Hyclate 100 mg 09/14/19 09:00 09/15/19 08:34 Vibramycin PO 09/24/19 09:01 100 mg BID MANUEL Administration Enoxaparin Sodium 40 mg 09/11/19 18:00 09/15/19 05:47 Lovenox SC 40 mg 0600,1800 MANUEL Administration Famotidine 20 mg 09/11/19 18:00 09/15/19 05:47 Pepcid SLOW IVP 20 mg 0600,1800 MANUEL Administration Guaifenesin/Dextromethorphan 15 ml 09/12/19 15:12 09/15/19 05:59 Robitussin Dm PO 15 ml Q4H PRN Administration Cough Levothyroxine Sodium 100 mcg 09/12/19 06:00 09/15/19 05:47 Synthroid PO 100 mcg 0600 MANUEL Administration Morphine Sulfate 4 mg 09/11/19 09:58 09/14/19 04:33 Morphine SLOW IVP 4 mg Q3H PRN Administration Pain Polyethylene Glycol 17 gm 09/14/19 09:00 09/15/19 08:25 Miralax PO Not Given DAILY MANUEL Prednisone 20 mg 09/14/19 08:00 09/15/19 08:34 Prednisone PO 09/21/19 08:01 20 mg QAM-WM MANUEL Administration Senna/Docusate Sodium 2 tab 09/13/19 18:48 09/13/19 20:07 Senokot S PO 2 tab BID PRN Administration Constipation Sodium Chloride 10 ml 09/11/19 21:00 09/15/19 08:35 Flush - Normal Saline IVF 10 ml Q12HR MANUEL Administration - Exam General Appearance: NAD, awake alert ENT: moist mucosa Heart: RRR, no murmur, no gallops, no rubs Respiratory - other findings: few crackles on left, good air movement throughout Gastrointestinal: soft, non-tender, non-distended, normal bowel sounds Neurological: no focal deficits Musculoskeletal: normal tone, normal strength Psychiatric: normal affect, normal behavior, A&O x 3 Hosp A/P (1) Pneumothorax on left Code(s): J93.9 - PNEUMOTHORAX, UNSPECIFIED Status: Acute (2) Pneumonia due to COVID-19 virus Code(s): U07.1 - COVID-19; J12.89 - OTHER VIRAL PNEUMONIA Status: Acute (3) Acute respiratory failure with hypoxia Code(s): J96.01 - ACUTE RESPIRATORY FAILURE WITH HYPOXIA Status: Acute (4) Hypothyroidism Code(s): E03.9 - HYPOTHYROIDISM, UNSPECIFIED Status: Chronic - Plan CT surgery and pulmonology following Pneumothorax resolving with chest tube replacement Switched to oral abx and steroids On 2-3L NC Lovenox 40mg BID Pepcid BID
[2019-09-15] MEDS: Famotidine 20 MG TAB PO SCH ×2 (09:33→20:37)
--- NOTE | 2019-09-15 10:40 | PRG ---
DATE OF SERVICE: 09/15/2019 SUBJECTIVE: This morning, he is doing better. OBJECTIVE: VITAL SIGNS: His temperature is 98, his pulse is 63, blood pressure CHEST: No wheezing or crackles. CARDIAC: Normal S1, S2. No gallops. ABDOMEN: No masses. LABORATORY DATA: His labs are sodium 133. IMPRESSION: Spontaneous pneumothorax, probably underlying chronic obstructive pulmonary disease, persistent hyponatremia, andre positive pneumonia. Once his chest tube is removed, he can probably be transferred to the MICU. Eventually, home. Job ID: [id number]
[2019-09-16] MEDS: Albuterol 200 PUFF (6.7GM INHALER) INH SCH ×4 (00:37→19:10)
[2019-09-16 03:48] LABS: #Eosinphils 0.5 thou/uL (0.0-0.7); #Monocytes 0.7 thou/uL (0.11-0.59); #Neutrophils 7.1 thou/uL (1.40-6.50); %Basophils 0.3 % (0.0-1.0); %Eosinophils 4.6 % (0.0-10.0); %Lymphocytes 26.5 % (21.0-51.0); %Monocytes 5.8 % (0.0-10.0); %Neutrophils 62.8 % (42.0-75.0); Hemoglobin 14.4 g/dL (14.0-18.0); Mean Corpuscular HGB CONC 32.9 g/dL (32.0-36.0); Mean Corpuscular Hemoglobin 31.1 pg (27.0-31.0); Mean Corpuscular Volume 94.5 fL (78.0-98.0); Mean Platelet Volume 8.6 fL (7.4-10.4); Platelet Count 203 thou/uL (130-400); RBC Distribution Width 13.3 % (11.5-14.5); Red Blood Cell (RBC) Count 4.62 mill/uL (4.70-6.10); White Blood Cell (WBC) Count 11.2 thou/uL (4.8-10.8)
[2019-09-16 04:10] LABS: Anion Gap 11 mmol/L (10-20); BUN (Urea Nitrogen) 15 mg/dL (8.4-25.7); Calc. Creatinine Clearance 126 mL/min (70-130); Calcium 9.6 mg/dL (7.8-10.44); Carbon Dioxide 32 mmol/L (22-29); Chloride 99 mmol/L (98-107); Estimated GFR-MDRD Greater than 90; Glucose 77 mg/dL (70-105); Potassium 4.6 mmol/L (3.5-5.1); Sodium 137 mmol/L (136-145)
[2019-09-16] MEDS: Levothyroxine Sodium 100 MCG TAB PO SCH (06:19)
[2019-09-16] MEDS: Enoxaparin Sodium 40 MG/0.4 ML SYRINGE SC SCH ×2 (06:19→17:18)
--- NOTE | 2019-09-16 07:27 | RAD ---
SINGLE VIEW CHEST: Date: 09/16/2019 COMPARISON: 09/14/2019. HISTORY: COVID pneumonia with chest tube placement. FINDINGS: Single view of the chest shows normal sized cardiomediastinal silhouette. There is a left-sided chest tube. The is a small left-sided pneumothorax. Air is seen along the left chest wall. Multifocal opac ities are seen in the lungs, unchanged. IMPRESSION: Stable exam. POS: [facility]
[2019-09-16] MEDS: Polyethylene Glycol 3350 17 GM Packet PO SCH (09:09)
[2019-09-16] MEDS: Famotidine 20 MG TAB PO SCH ×2 (09:16→19:45)
[2019-09-16] MEDS: predniSONE 20 MG TAB PO SCH (09:16)
[2019-09-16] MEDS: Doxycycline 100 MG CAP PO SCH ×2 (09:16→19:45)
--- NOTE | 2019-09-16 09:17 | PDOC.HOSPP ---
- Subjective Encounter Date: 09/16/19 Encounter Time: 10:00 Subjective: Patient without any changes to symptoms. Some cough. Chest pain with cough only. - Objective Vital Signs & Weight: Vital Signs (12 hours) Temp 09/16/19 04:00 98.0 F 09/16/19 00:00 98.0 F Weight Admit Weight 186 lb Weight 186 lb Most Recent Monitor Data Heart Rate from ECG 82 NIBP 99/69 NIBP BP-Mean 79 Respiration from ECG 21 SpO2 90 I&O: 09/15/19 09/16/19 09/17/19 06:59 06:59 06:59 Intake Total 1630 1450 Output Total 2490 8650 Balance -029 -8160 Result Diagrams: 09/16/19 03:12 09/16/19 03:12 Hospitalist ROS - Review of Systems Constitutional: denies: fever, chills Respiratory: reports: cough, pleuritic pain. denies: shortness of breath Cardiovascular: denies: palpitations Gastrointestinal: denies: nausea, vomiting, abdominal pain, diarrhea, constipation - Medication Medications: Active Medications Generic Name Dose Route Start Last Admin Trade Name Freq PRN Reason Stop Dose Admin Hydrocodone Bitart/Acetaminophen 1 tab 09/11/19 18:13 09/15/19 05:57 [place] 10/325 PO 1 tab Q4H PRN Administration Mild-Moderate Pain (1-5) Hydrocodone Bitart/Acetaminophen 2 tab 09/11/19 18:13 09/14/19 09:54 [place] 10/325 PO 2 tab Q4H PRN Administration Moderate to Severe Pain (6-10) Albuterol Sulfate 2 puff 09/11/19 19:00 09/16/19 06:19 Proventil Hfa INH 2 puff [id number] MANUEL Administration Doxycycline Hyclate 100 mg 09/14/19 09:00 09/15/19 20:37 Vibramycin PO 09/24/19 09:01 100 mg BID MANUEL Administration Enoxaparin Sodium 40 mg 09/11/19 18:00 09/16/19 06:19 Lovenox SC 40 mg 0600,1800 MANUEL Administration Famotidine 20 mg 09/15/19 09:00 09/15/19 20:37 Pepcid PO Not Given BID MANUEL Guaifenesin/Dextromethorphan 15 ml 09/12/19 15:12 07/17/20 20:38 Robitussin Dm PO 15 ml Q4H PRN Administration Cough Levothyroxine Sodium 100 mcg 09/12/19 06:00 09/16/19 06:19 Synthroid PO 100 mcg 0600 MANUEL Administration Morphine Sulfate 4 mg 09/11/19 09:58 09/14/19 04:33 Morphine SLOW IVP 4 mg Q3H PRN Administration Pain Polyethylene Glycol 17 gm 09/14/19 09:00 09/16/19 09:09 Miralax PO Not Given DAILY MANUEL Prednisone 20 mg 09/14/19 08:00 09/15/19 08:34 Prednisone PO 09/21/19 08:01 20 mg QAM-WM MANUEL Administration Senna/Docusate Sodium 2 tab 09/13/19 18:48 09/13/19 20:07 Senokot S PO 2 tab BID PRN Administration Constipation Sodium Chloride 10 ml 09/11/19 21:00 09/15/19 20:37 Flush - Normal Saline IVF 10 ml Q12HR MANUEL Administration - Exam General Appearance: NAD, awake alert ENT: moist mucosa Heart: RRR, no murmur, no gallops, no rubs Respiratory - other findings: few crackles on left, good air movement throughout Gastrointestinal: soft, non-tender, non-distended, normal bowel sounds Psychiatric: normal affect, normal behavior, A&O x 3 Hosp A/P (1) Pneumothorax on left Code(s): J93.9 - PNEUMOTHORAX, UNSPECIFIED Status: Acute (2) Pneumonia due to COVID-19 virus Code(s): U07.1 - COVID-19; J12.89 - OTHER VIRAL PNEUMONIA Status: Acute (3) Acute respiratory failure with hypoxia Code(s): J96.01 - ACUTE RESPIRATORY FAILURE WITH HYPOXIA Status: Acute (4) Hypothyroidism Code(s): E03.9 - HYPOTHYROIDISM, UNSPECIFIED Status: Chronic - Plan CT surgery and pulmonology following Pneumothorax resolving with chest tube replacement Switched to oral abx and steroids On 2-3L NC Lovenox 40mg BID Pepcid BID To floor once ok with CT surgery
[2019-09-16] MEDS: HYDROcodone/Acetaminophen 10/325 mg Tablet PO PRN ×2 (12:46→18:29)
[2019-09-16] MEDS: Guaifenesin DM 100-10/5 ML UDCUP PO PRN ×2 (12:54→20:01)
--- NOTE | 2019-09-16 14:04 | RAD ---
EXAM: Single view of the chest HISTORY: Placement of chest tube with pneumothorax COMPARISON: 09/16/2019 at 6:16 AM FINDINGS: Single view of the chest shows a normal sized cardiomediastinal silhouette. The left-sided chest tube is unchanged in position. No obvious pneumothorax is seen. Stable scattered areas of multifocal opacities are seen. Air is seen in the left chest wall. IMPRESSION: Stable exam
[2019-09-17] MEDS: Albuterol 200 PUFF (6.7GM INHALER) INH SCH ×4 (00:30→19:24)
[2019-09-17] MEDS: Enoxaparin Sodium 40 MG/0.4 ML SYRINGE SC SCH ×2 (04:58→17:25)
[2019-09-17] MEDS: Levothyroxine Sodium 100 MCG TAB PO SCH (04:59)
[2019-09-17 06:36] LABS: Anion Gap 11 mmol/L (10-20); BUN (Urea Nitrogen) 17 mg/dL (8.4-25.7); Calc. Creatinine Clearance 126 mL/min (70-130); Calcium 9.3 mg/dL (7.8-10.44); Carbon Dioxide 27 mmol/L (22-29); Chloride 101 mmol/L (98-107); Estimated GFR-MDRD Greater than 90; Glucose 79 mg/dL (70-105); Sodium 135 mmol/L (136-145)
[2019-09-17 06:48] LABS: #Eosinphils 0.7 thou/uL (0.0-0.7); #Monocytes 0.7 thou/uL (0.11-0.59); #Neutrophils 7.7 thou/uL (1.40-6.50); %Basophils 0.2 % (0.0-1.0); %Eosinophils 5.5 % (0.0-10.0); %Neutrophils 63.4 % (42.0-75.0); Hemoglobin 13.6 g/dL (14.0-18.0); Mean Corpuscular HGB CONC 31.9 g/dL (32.0-36.0); Mean Corpuscular Hemoglobin 30.3 pg (27.0-31.0); Mean Corpuscular Volume 94.9 fL (78.0-98.0); Mean Platelet Volume 8.5 fL (7.4-10.4); Platelet Count 223 thou/uL (130-400); RBC Distribution Width 13.6 % (11.5-14.5); Red Blood Cell (RBC) Count 4.48 mill/uL (4.70-6.10); White Blood Cell (WBC) Count 12.1 thou/uL (4.8-10.8)
[2019-09-17] MEDS: Doxycycline 100 MG CAP PO SCH ×2 (08:18→20:21)
[2019-09-17] MEDS: Polyethylene Glycol 3350 17 GM Packet PO SCH (08:18)
[2019-09-17] MEDS: Famotidine 20 MG TAB PO SCH ×2 (08:18→20:21)
[2019-09-17] MEDS: predniSONE 20 MG TAB PO SCH (08:18)
[2019-09-17] MEDS: Guaifenesin DM 100-10/5 ML UDCUP PO PRN ×4 (08:25→21:52)
[2019-09-17] MEDS: HYDROcodone/Acetaminophen 10/325 mg Tablet PO PRN ×2 (08:26→17:29)
--- NOTE | 2019-09-17 09:48 | PRG ---
DATE OF SERVICE: 09/16/2019 SUBJECTIVE: A 54-year-old gentleman was transferred to the medical floor from the MICU. OBJECTIVE: VITAL SIGNS: His sats are 96%, blood pressure 178/73, respiratory rate he has some crepitus. CHEST: No wheezing. CARDIAC: Normal S1, S2. No gallops. ABDOMEN: No masses. LABORATORY DATA: White count 11,000, otherwise unremarkable. Chest x-ray shows stable findings with peripheral infiltrates. IMPRESSION AND PLAN: Spontaneous pneumothorax, peripheral infiltrates, positive virus. Continue prednisone suction. We will follow. Job ID: [id number]
--- NOTE | 2019-09-17 10:09 | RAD ---
PORTABLE CHEST ONE VIEW: 09/17/19 9:42 a.m. HISTORY: Chest tube placement. COVID 19 pneumonia. FINDINGS: No significant interval changes seen since the previous day's exam. No definite pneumothorax is ident ified. POS: [facility]
--- NOTE | 2019-09-17 12:09 | PRG ---
DATE OF SERVICE: 09/17/2019 SUBJECTIVE: Awake, alert, responsive and doing well. OBJECTIVE: VITAL SIGNS: Temperature 98, pulse 100, respiratory rate 20, sats 92% on nasal O2, temperature 98, blood pressure 96/65. CHEST: No wheezing. No crackles. CARDIAC: Normal S1 and S2. No gallop. ABDOMEN: No masses. LABORATORY DATA: Labs are unremarkable. . Chest tube in place. Nonspecific infiltrates. ASSESSMENT: Patino positive pneumonia, probably underlying chronic obstructive pulmonary disease, emphysema, spontaneous pneumothorax. The patient appears to have improved once his air leak subsides. He can probably go home. In the meantime, we will continue doxy, prednisone, neb treatments . Job ID: [id number]
--- NOTE | 2019-09-17 12:20 | PDOC.HOSPP ---
- Subjective Encounter Date: 09/17/19 Encounter Time: 12:12 Subjective: dry cough, mild sob - Objective Vital Signs & Weight: Vital Signs (12 hours) Temp Pulse Resp BP Pulse Ox 09/17/19 08:00 98.4 F 120 H 20 96/65 92 L 09/17/19 05:00 92 L 09/17/19 04:00 98.4 F 88 20 105/70 92 L Weight Admit Weight 186 lb Weight 186 lb Most Recent Monitor Data Heart Rate from ECG 96 NIBP 117/77 NIBP BP-Mean 90 Respiration from ECG 22 SpO2 93 I&O: 09/16/19 09/17/19 09/18/19 06:59 06:59 06:59 Intake Total 1450 1140 Output Total 7687 6319 Balance -3743 -956 Result Diagrams: 09/17/19 05:53 09/17/19 05:53 Hospitalist ROS - Medication Medications: Active Medications Generic Name Dose Route Start Last Admin Trade Name Freq PRN Reason Stop Dose Admin Hydrocodone Bitart/Acetaminophen 1 tab 09/11/19 18:13 09/17/19 08:26 [place] 10/325 PO 1 tab Q4H PRN Administration Mild-Moderate Pain (1-5) Hydrocodone Bitart/Acetaminophen 2 tab 09/11/19 18:13 09/14/19 09:54 [place] 10/325 PO 2 tab Q4H PRN Administration Moderate to Severe Pain (6-10) Albuterol Sulfate 2 puff 09/11/19 19:00 09/17/19 08:18 Proventil Hfa INH 2 puff [id number] MANUEL Administration Doxycycline Hyclate 100 mg 09/14/19 09:00 09/17/19 08:18 Vibramycin PO 09/24/19 09:01 100 mg BID MANUEL Administration Enoxaparin Sodium 40 mg 09/11/19 18:00 09/17/19 04:58 Lovenox SC 40 mg 0600,1800 MANUEL Administration Famotidine 20 mg 09/15/19 09:00 09/17/19 08:18 Pepcid PO 20 mg BID MANUEL Administration Guaifenesin/Dextromethorphan 15 ml 09/12/19 15:12 09/17/19 08:25 Robitussin Dm PO 15 ml Q4H PRN Administration Cough Levothyroxine Sodium 100 mcg 09/12/19 06:00 09/17/19 04:59 Synthroid PO 100 mcg 0600 MANUEL Administration Morphine Sulfate 4 mg 09/11/19 09:58 09/14/19 04:33 Morphine SLOW IVP 4 mg Q3H PRN Administration Pain Polyethylene Glycol 17 gm 09/14/19 09:00 09/17/19 08:18 Miralax PO Not Given DAILY MANUEL Prednisone 20 mg 09/14/19 08:00 09/17/19 08:18 Prednisone PO 09/21/19 08:01 20 mg QAM-WM MANUEL Administration Senna/Docusate Sodium 2 tab 09/13/19 18:48 09/13/19 20:07 Senokot S PO 2 tab BID PRN Administration Constipation Sodium Chloride 10 ml 09/11/19 21:00 09/17/19 08:18 Flush - Normal Saline IVF 10 ml Q12HR MANUEL Administration - Exam General Appearance: awake alert Neck: no JVD Heart: RRR, no murmur Respiratory - other findings: rales Lupper chest, OW clear lung nascimento Gastrointestinal: soft, non-tender, non-distended, normal bowel sounds Extremities: no edema Hosp A/P (1) Acute respiratory failure with hypoxia Code(s): J96.01 - ACUTE RESPIRATORY FAILURE WITH HYPOXIA Status: Acute (2) Pneumonia due to COVID-19 virus Code(s): U07.1 - COVID-19; J12.89 - OTHER VIRAL PNEUMONIA Status: Acute (3) Pneumothorax on left Code(s): J93.9 - PNEUMOTHORAX, UNSPECIFIED Status: Acute (4) Hypothyroidism Code(s): E03.9 - HYPOTHYROIDISM, UNSPECIFIED Status: Chronic - Plan chest tube per [facility] cont pred, etc
[2019-09-18] MEDS: Albuterol 200 PUFF (6.7GM INHALER) INH SCH ×4 (00:20→18:24)
[2019-09-18 05:51] LABS: #Eosinphils 0.5 thou/uL (0.0-0.7); #Lymphocytes 2.7 thou/uL (1.20-3.40); #Monocytes 0.8 thou/uL (0.11-0.59); #Neutrophils 8.5 thou/uL (1.40-6.50); %Eosinophils 4.2 % (0.0-10.0); %Lymphocytes 21.7 % (21.0-51.0); %Monocytes 6.3 % (0.0-10.0); %Neutrophils 67.8 % (42.0-75.0); Hemoglobin 12.8 g/dL (14.0-18.0); Mean Corpuscular HGB CONC 32.3 g/dL (32.0-36.0); Mean Corpuscular Hemoglobin 30.6 pg (27.0-31.0); Mean Corpuscular Volume 94.8 fL (78.0-98.0); Mean Platelet Volume 8.4 fL (7.4-10.4); Platelet Count 212 thou/uL (130-400); RBC Distribution Width 13.4 % (11.5-14.5); White Blood Cell (WBC) Count 12.5 thou/uL (4.8-10.8)
[2019-09-18] MEDS: Levothyroxine Sodium 100 MCG TAB PO SCH (05:53)
[2019-09-18] MEDS: HYDROcodone/Acetaminophen 10/325 mg Tablet PO PRN ×4 (05:53→22:00)
[2019-09-18] MEDS: Guaifenesin DM 100-10/5 ML UDCUP PO PRN ×4 (05:53→22:00)
[2019-09-18] MEDS: Enoxaparin Sodium 40 MG/0.4 ML SYRINGE SC SCH ×2 (05:55→16:56)
[2019-09-18 06:14] LABS: Anion Gap 9 mmol/L (10-20); BUN (Urea Nitrogen) 14 mg/dL (8.4-25.7); Calc. Creatinine Clearance 117 mL/min (70-130); Calcium 9.1 mg/dL (7.8-10.44); Carbon Dioxide 31 mmol/L (22-29); Chloride 100 mmol/L (98-107); Estimated GFR-MDRD Greater than 90; Glucose 82 mg/dL (70-105); Potassium 4.1 mmol/L (3.5-5.1); Sodium 136 mmol/L (136-145)
[2019-09-18] MEDS: predniSONE 20 MG TAB PO SCH (08:17)
[2019-09-18] MEDS: Famotidine 20 MG TAB PO SCH ×2 (08:17→21:16)
[2019-09-18] MEDS: Polyethylene Glycol 3350 17 GM Packet PO SCH (08:17)
[2019-09-18] MEDS: Doxycycline 100 MG CAP PO SCH ×2 (08:18→21:16)
--- NOTE | 2019-09-18 11:29 | PDOC.HOSPP ---
- Subjective Encounter Date: 09/18/19 Encounter Time: 11:19 Subjective: fever, sob ok - Objective Vital Signs & Weight: Vital Signs (12 hours) Temp Pulse Resp BP Pulse Ox 09/18/19 08:20 98.4 F 99 18 102/70 96 09/18/19 04:00 98.7 F 94 20 104/68 92 L 09/18/19 03:49 94 L 09/18/19 00:00 98.7 F 89 20 100/68 94 L Weight Admit Weight 186 lb Weight 186 lb Most Recent Monitor Data Heart Rate from ECG 96 NIBP 117/77 NIBP BP-Mean 90 Respiration from ECG 22 SpO2 93 I&O: 09/17/19 09/18/19 09/19/19 06:59 06:59 06:59 Intake Total 1140 1980 Output Total 2059 Balance -635 -80 Result Diagrams: 09/18/19 05:10 09/18/19 05:10 Hospitalist ROS - Medication Medications: Active Medications Generic Name Dose Route Start Last Admin Trade Name Freq PRN Reason Stop Dose Admin Hydrocodone Bitart/Acetaminophen 1 tab 09/11/19 18:13 09/18/19 05:53 [place] 10/325 PO 1 tab Q4H PRN Administration Mild-Moderate Pain (1-5) Hydrocodone Bitart/Acetaminophen 2 tab 09/11/19 18:13 09/14/19 09:54 [place] 10/325 PO 2 tab Q4H PRN Administration Moderate to Severe Pain (6-10) Albuterol Sulfate 2 puff 09/11/19 19:00 09/18/19 08:04 Proventil Hfa INH 2 puff [id number] MANUEL Administration Doxycycline Hyclate 100 mg 09/14/19 09:00 09/18/19 08:18 Vibramycin PO 09/24/19 09:01 100 mg BID MANUEL Administration Enoxaparin Sodium 40 mg 09/11/19 18:00 09/18/19 05:55 Lovenox SC 40 mg 0600,1800 MANUEL Administration Famotidine 20 mg 09/15/19 09:00 09/18/19 08:17 Pepcid PO 20 mg BID MANUEL Administration Guaifenesin/Dextromethorphan 15 ml 09/12/19 15:12 09/18/19 05:53 Robitussin Dm PO 15 ml Q4H PRN Administration Cough Levothyroxine Sodium 100 mcg 09/12/19 06:00 09/18/19 05:53 Synthroid PO 100 mcg 0600 MANUEL Administration Morphine Sulfate 4 mg 09/11/19 09:58 09/14/19 04:33 Morphine SLOW IVP 4 mg Q3H PRN Administration Pain Polyethylene Glycol 17 gm 09/14/19 09:00 09/18/19 08:17 Miralax PO 17 gm DAILY MANUEL Administration Prednisone 20 mg 09/14/19 08:00 09/18/19 08:17 Prednisone PO 09/21/19 08:01 20 mg QAM-WM MANUEL Administration Senna/Docusate Sodium 2 tab 09/13/19 18:48 09/13/19 20:07 Senokot S PO 2 tab BID PRN Administration Constipation Sodium Chloride 10 ml 09/11/19 21:00 09/18/19 08:17 Flush - Normal Saline IVF 10 ml Q12HR MANUEL Administration - Exam General Appearance: awake alert Neck: no JVD Heart: RRR, no murmur Respiratory - other findings: chest tube, rales LUchest Gastrointestinal: soft, normal bowel sounds Extremities: no edema Hosp A/P (1) Acute respiratory failure with hypoxia Code(s): J96.01 - ACUTE RESPIRATORY FAILURE WITH HYPOXIA Status: Acute (2) Pneumonia due to COVID-19 virus Code(s): U07.1 - COVID-19; J12.89 - OTHER VIRAL PNEUMONIA Status: Acute (3) Pneumothorax on left Code(s): J93.9 - PNEUMOTHORAX, UNSPECIFIED Status: Acute (4) Hypothyroidism Code(s): E03.9 - HYPOTHYROIDISM, UNSPECIFIED Status: Chronic - Plan chest tube per [facility] cont pred, doxycycline
--- NOTE | 2019-09-18 11:52 | RAD ---
PORTABLE CHEST 1 VIEW: DATE: 09/18/2019. TIME: 9:56 AM. HISTORY: Chest tube, pneumothorax. FINDINGS: Comparison is made with the exam of 09/17/2019 and 09/16/2019. Left-sided chest tube remains in place. No pneumothorax is seen. There is subcutaneous emphysema in the soft tissues of the left side of the neck and chest. The remainder of the exam is otherwise sta ble. POS: [facility]
--- NOTE | 2019-09-18 13:25 | PRG ---
DATE OF SERVICE: 09/18/2019 SUBJECTIVE: Philip Falk this morning is awake, alert, and responsive, is doing well. OBJECTIVE: VITAL SIGNS: His sats are 92% on 2 L, temperature 98, pulse respirations 20, and blood pressure 105/68. CHEST: Decreased breath sounds. No wheezing. CARDIAC: Normal S1, S2. No gallops. ABDOMEN: Soft. ASSESSMENT: Spontaneous pneumothorax, chronic obstructive pulmonary disease underlying, positive virus. The patient is much improved. Once his CT is removed, he can be discharged to home. Job ID: [id number]
[2019-09-19] MEDS: Albuterol 200 PUFF (6.7GM INHALER) INH SCH ×4 (01:00→18:19)
[2019-09-19] MEDS: Levothyroxine Sodium 100 MCG TAB PO SCH (05:10)
[2019-09-19] MEDS: HYDROcodone/Acetaminophen 10/325 mg Tablet PO PRN (05:10)
[2019-09-19] MEDS: Guaifenesin DM 100-10/5 ML UDCUP PO PRN ×3 (05:11→17:04)
[2019-09-19] MEDS: Enoxaparin Sodium 40 MG/0.4 ML SYRINGE SC SCH ×2 (05:11→17:04)
[2019-09-19 06:16] LABS: #Basophils 0.1 thou/uL (0.0-0.2); #Eosinphils 0.5 thou/uL (0.0-0.7); #Lymphocytes 2.8 thou/uL (1.20-3.40); #Monocytes 0.7 thou/uL (0.11-0.59); #Neutrophils 5.6 thou/uL (1.40-6.50); %Basophils 1.2 % (0.0-1.0); %Eosinophils 4.8 % (0.0-10.0); %Lymphocytes 28.9 % (21.0-51.0); %Neutrophils 58.1 % (42.0-75.0); Hemoglobin 12.4 g/dL (14.0-18.0); Mean Corpuscular HGB CONC 31.4 g/dL (32.0-36.0); Mean Corpuscular Hemoglobin 29.9 pg (27.0-31.0); Mean Platelet Volume 8.4 fL (7.4-10.4); Platelet Count 229 thou/uL (130-400); RBC Distribution Width 13.3 % (11.5-14.5); Red Blood Cell (RBC) Count 4.16 mill/uL (4.70-6.10); White Blood Cell (WBC) Count 9.6 thou/uL (4.8-10.8)
[2019-09-19 06:31] LABS: Anion Gap 9 mmol/L (10-20); BUN (Urea Nitrogen) 11 mg/dL (8.4-25.7); Calc. Creatinine Clearance 125 mL/min (70-130); Calcium 9.2 mg/dL (7.8-10.44); Carbon Dioxide 28 mmol/L (22-29); Chloride 101 mmol/L (98-107); Estimated GFR-MDRD Greater than 90; Glucose 99 mg/dL (70-105); Potassium 3.8 mmol/L (3.5-5.1); Sodium 134 mmol/L (136-145)
--- NOTE | 2019-09-19 08:07 | RAD ---
PORTABLE CHEST: HISTORY: Chest tube, pneumothorax. COMPARISON: Prior day's exam. FINDINGS: Heart size appears borderline-size. Parenchymal lung changes are similar to the prior exam. Left ch est tube remains unchanged in position. Subcutaneous emphysema is seen. No pneumothorax. IMPRESSION: Stable exam. POS: [facility]
[2019-09-19] MEDS: Famotidine 20 MG TAB PO SCH (08:50)
[2019-09-19] MEDS: predniSONE 20 MG TAB PO SCH (08:50)
[2019-09-19] MEDS: Polyethylene Glycol 3350 17 GM Packet PO SCH (08:50)
[2019-09-19] MEDS: Doxycycline 100 MG CAP PO SCH (08:50)
--- NOTE | 2019-09-19 11:57 | PRG ---
DATE OF SERVICE: 09/19/2019 SUBJECTIVE: Philip Falk is a 54-year-old gentleman. Chest tube was removed today. X-ray is much improved. OBJECTIVE: VITAL SIGNS: Temperature 98, pulse 111, respiratory rate 16, sats are 93% to 96%, blood pressure . CHEST: Decreased breath sounds. No wheezing. CARDIAC: Normal S1, S2. No gallops. ABDOMEN: No masses. LABORATORY DATA: Unremarkable. ASSESSMENT AND PLAN: Patino positive pneumonia, respiratory failure, left-sided pneumothorax, resolved. He can be discharged home on prednisone for another week. Antibiotic as prescribed for a total of 10 days. Follow up with his doctor in [place], [place]. Job ID: [id number]
[2019-09-19 19:06] VITALS: BP 101/72; TEMP 98.8
--- NOTE | 2019-09-20 07:26 | PQF ---
CLINICAL DOCUMENTATION CLARIFICATION FORM: Dear : Feliciano Diaz Date / Time: 09/20/19 5745 Please exercise your independent, professional judgment in responding to the clarification form. Clinical indicators are provided on the bottom of this form for your revie Please check appropriate box(es): [ ] Sepsis due to Covid Pneumonia [ ] Severe sepsis due to Covid Pneumonia [ ] Septic Shock due to Covid Pneumonia [ ] Localized infection without sepsis [ x ] Other diagnosis pneumothorax due to COVID respiratory disease [ ] Unable to determine In addition, please specify: Present on Admission (POA): [x ] Yes [ ] No [ ] Unable to determine Physician Signature: Date/Time: For continuity of documentation, please document condition throughout progress notes and discharge summary. Thank You. To be completed by CDI/Coding staff for physician review: Present Clinical Indicators - Signs / Symptoms / Labs Results and Location in Medical Record [X] BP 101/77, Pulse 110, Resp 33, Temp 98.2, O2 sat 94% Vital signs 09/10 [X] WBC 12.7, Neutrophils 90.4, Plt count 198, Band 6 Laboratory hematology 09/11 [X] SIRS scoring: Yes, pt did meet at least 2 criteria ED notes p2 09/10 [X] He continue to have cough and then some mild SOB H&P p1 09/10 Dr El [X] Covid Pneumonia H&P p3 09/10 Dr El [X] Acute respiratory failure with hypoxia H&P p3 09/10 Dr El [X] Chest Xray:multifocal peripheral opacities are seen in the lungs Chest Xray 09/10 Present Risk Factors Results and Location in Medical Record [X] Tension Pneumothorax H&P p3 09/10 Dr El [X] Covid Pneumonia H&P p3 09/10 Dr El [X] COPD PN p1 09/13 Dr Baron [X] Emphysema PN p1 09/15 Dr Baron Present Treatments Results and Location in Medical Record [X] Oxygen 4L Respiratory Panel 09/10 [X] IVF NS 1L MAR 09/10 [X] IV Azithromycin 500 mg MAY 05 [X] IV Cefepime 1 gm MAY 05 [X] IV Rocephin 2 gm MAY 05 [X] IV Solumedrol 40 mg MAY 05 [X] Transfused: [facility] Blood bank 09/10 [X] Chest X-ray Imaging Dr Castaneda 09/10 [X] Pulmonary Consult Consult [facility] [place] 09/10 [X] Isolation PN 09/12 CDS/[employer] Signature: Debbie Quiñonez Vijay Phone #: ext [phone] Date/Time: 09/20/19 0574 This is a permanent part of the Medical Record [facility]
--- NOTE | 2019-09-20 08:47 | DIS ---
DATE OF ADMISSION: 09/11/2019 DATE OF DISCHARGE: 09/19/2019 PRIMARY CARE PHYSICIAN: In [place], [place]. The patient referred to [facility] [place] from the [place] area. FINAL DIAGNOSES: Pneumothorax, left lung; COVID acute respiratory disease; acute respiratory failure with hypoxia; hypothyroidism. DISCHARGE MEDICATIONS: 1. Albuterol 2 puffs q.6 hours p.r.n. 2. Doxycycline 100 mg p.o. b.i.d. for 7 days. 3. Prednisone 20 mg a day for 7 days. CODE STATUS: Full. PENDING AT THE TIME OF DISCHARGE: Nothing. Place in quarantine for 14 days post discharge. CONSULTATIONS DURING HOSPITAL STAY: Dr. Momo Baron, Pulmonology; Dr. Reinaldo Valenzuela, Cardiovascular Surgery. HOSPITAL COURSE: The patient referred to [facility]. He developed a cough about 1 to 2 months ago. He had a COVID test 2 weeks ago that was negative. He was seen 1 week ago, had a COVID test, and it was positive. He was given azithromycin and unknown medication. He went to the emergency room in [place], [place], noted to have a tension pneumothorax, first had a pigtail catheter placed, but did not drain. Left-sided chest tube was placed with improvement. He had O2 saturations in the 80s on room air prior to chest tube placement. He was referred to our emergency room. After admission, Dr. Valenzuela was consulted and adjusted the chest tube. The patient was continued on azithromycin and put on dexamethasone in the emergency room. Dr. Baron was consulted and changed him to Solu-Medrol with oxygen as needed. Serial chest x-rays were done during his hospital stay. They demonstrated gradual reinflation of his lung with the chest tube. His initial laboratory; white count 17.5, hemoglobin 12.5, platelet count 180,000. His last white count 9.6 on 09/18, hemoglobin 12.4. Chemistries were unremarkable during his hospital stay. He had cultures that were negative. On 09/18, chest tube was removed. Breath sounds were good. Followup chest x-ray was not done that I can see. Dr. Valenzuela stated and Dr. Baron stated he can be discharged to return home. He was discharged for followup with his PCP in 7 days. Job ID: [id number]
== END 2019-09-19 19:30 | disposition home or self-care (01) | DRG 177 ==
LOC: ERS 05:31 → IMCU/EMU 09:12 → T4-A 09-16 11:37
PROVIDERS: ADMIT Emergency Medicine; ATTEND Emergency Medicine
PROC: 30233L1 Transfusion of Nonautologous Fresh Plasma into Peripheral Vein, Percutaneous Approach (ICD-10-PCS; principal; 2019-09-11)
PROC: 30233K1 Transfusion of Nonautologous Frozen Plasma into Peripheral Vein, Percutaneous Approach (ICD-10-PCS; 2019-09-11)
PROC: 8E0ZXY6 Isolation (ICD-10-PCS; 2019-09-11)
PROC: 0W9B30Z Drainage of Left Pleural Cavity with Drainage Device, Percutaneous Approach (ICD-10-PCS; 2019-09-11)
PROC: 0W9B30Z Drainage of Left Pleural Cavity with Drainage Device, Percutaneous Approach (ICD-10-PCS; 2019-09-13)
DX: U07.1 COVID-19 (principal); J12.89 Other viral pneumonia; J96.01 Acute respiratory failure with hypoxia; J93.0 Spontaneous tension pneumothorax; E87.1 Hypo-osmolality and hyponatremia; E03.9 Hypothyroidism, unspecified; J43.9 Emphysema, unspecified; Z79.890 Hormone replacement therapy
CPT/HCPCS: 36415; 36430; 71045; 71275; 80048; 82728; 85025; 86140; 86850; 86900; 86901; 96374; 96375; J0456; J0692; J0696; J1650; J2001; J2270; J2920; J3010; J3411; J3490; J7050; J7512; Q9967; S0028